=== PATIENT | male | born 1955 | race African-American/Black ===

== ENCOUNTER 2024-08-14 15:36 | Outpatient (REF) | payer OTHER, SELFPAY ==
[2024-08-14 17:33] LABS: Vitamin B12 930 pg/mL (200-900)
[2024-08-20 21:48] LABS: Treponema pallidum Ab FTA ABS Nonreactive (Nonreactive)
== END 2024-08-14 15:37 | disposition home or self-care (01) ==
LOC: HO.LAB 15:36
PROVIDERS: PCP Internal Medicine; Visit Provider Psychiatry & Neurology Neurology
DX: G31.84 Mild cognitive impairment of uncertain or unknown etiology (principal)
CPT/HCPCS: 36415; 82607; 86780

== ENCOUNTER 2025-08-18 10:57 | Outpatient (AMB) | payer OTHER, SELFPAY ==
--- NOTE | 2025-08-18 11:37 | A.OFFVIS_ITS ---
Intake Visit Reasons: 6m Vascular dementia Allergies No Known Allergies Allergy (Verified 05/21/25 07:58) HPI Comments Details: 69 yo LH man with h/o poly drug abuse but not in recent years, major depression and kidney disease was here for vascular dementia. He is a 69 year old individual presenting for follow-up regarding fatigue and memory concerns. The patient reports feeling tired a lot, struggling to get up, and a lack of motivation for usual activities. The patient is taking an unspecified medication for memory, one pill a day, and feels that it is helping. The patient has a past diagnosis of ADHD and previously took medication for it but is no longer on it. The patient has a medical history significant for hypertension, kidney disease, and an unspecified heart issue. The patient previously tried sertraline but did not like the way it made the patient feel. [facility] Medical History (Updated 08/18/25 @ 11:39 by Lilly Danielle MD) Vascular dementia MCI (mild cognitive impairment) Encephalopathy Review of Systems Narrative - Constitutional: Reports fatigue. - Musculoskeletal: Reports difficulty getting up. - Psychiatric: Reports lack of motivation; denies feeling depressed. Physical Exam Neuro Other: Mental Status: Alert and oriented to person, place, and time. Normal attention. Normal spontaneous speech, fluency, and comprehension. Cranial Nerves: CN II: Visual cook full to confrontation, visual acuity intact. CN III, IV, : Pupils equal, round, reactive to light and accommodation. Extraocular movements are normal. CN V: Facial sensation is normal. CN VII: Facial movements symmetrical. CN VIII: Hearing intact to bedside conversation is normal. CN IX, X: Palate elevates symmetrically. CN XI: Shoulder shrug and head turn symmetrical. CN XII: Tongue midline without atrophy or fasciculations. Extrapyramidal: Full facial expressions and blinking. No rigidity. Movements are appropriate with no tremor or abnormality. Speech: Normal; no dysarthria or tremor. Assessment & Plan Assessment & Plan (1) Vascular dementia: Comment: MRI brain WO at [place] in 2023: Extensive WM changes (reported). Code(s): F01.50 - Vascular dementia, unspecified severity, without behavioral disturbance, psychotic disturbance, mood disturbance, and anxiety Category: Medical Qualifiers: Dementia severity: moderate Dementia behavioral or psychological symptom: with mood disturbance Qualified Code(s): F01.B3 - Vascular dementia, moderate, with mood disturbance Plan Impression: Vascular dementia with symptoms of depression Rec: Memantine 10mg a day. He was educated about treatment of depression but he said that medicine did not help out. Nonmedicinal ways were recommended. He should continue with therapy. Medications: Refilled memantine 10 mg PO DAILY 90 tabs 1RF Coding Level of Care Code Est Pt Level 3 (46355) Diagnoses Moderate vascular dementia with mood disturbance F01.B3 Dementia severity: moderate Dementia behavioral or psychological symptom: with mood disturbance
--- OUTSIDE RECORDS SUMMARY | 2025-08-18 14:04 | XMS_ITS | Clinical Summary ---
Author Organization 175 [facility] Address [address] [place] [address] Phone Care Team Providers Care Associate Program Manager Name Role Phone Sidra Mcfadden MD Primary Care Provider [phone] Allergies Active Allergy Reactions Criticality Noted Date Comments Citric Acid 10/28/2016 If too much fruit is eaten- hasn't happened in years. hives Medications omeprazole 20 mg tablet,disintegr at, delay rel Take 1 tablet by mouth 1 (one) time each day. Active cholecalciferol (VITAMIN D-3) 25 mcg (1,000 unit) capsule Take 1 capsule (1,000 Units total) by mouth 1 (one) time each day. Active memantine (NAMENDA) 5 mg tablet Take 1 tablet (5 mg total) by mouth 2 (two) times a day. Active cyanocobalamin (VITAMIN B-12) 1,000 mcg tablet Take 1 tablet (1,000 mcg total) by mouth 1 (one) time each day. 90 tablet 1 04/21/2025 Active Jardiance 10 mg tablet Take 1 tablet (10 mg total) by mouth 1 (one) time each day. with food 90 tablet 1 04/21/2025 Active metoprolol succinate (TOPROL-XL) 50 mg 24 hr tablet Take 1 tablet (50 mg total) by mouth 1 (one) time each day. 90 each 3 04/21/2025 04/21/20 26 Active atorvastatin (LIPITOR) 20 mg tablet Take 1 tablet (20 mg total) by mouth 1 (one) time each day. 90 tablet 2 04/23/2025 Active aspirin 81 mg chewable tablet Chew 1 tablet (81 mg total) 1 (one) time each day. 90 tablet 05/05/2025 Active tamsulosin (FLOMAX) 0.4 mg 24 hr capsuleIndicatio ns:Benign prostatic hyperplasia with lower urinary tract symptoms Take 1 capsule (0.4 mg total) by mouth 1 (one) time each day. 90 capsule 1 06/18/2025 Active amLODIPine (NORVASC) 10 mg tabletIndication s:Hypertension, essential Take 1 tablet (10 mg total) by mouth 1 (one) time each day. 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 The patient was advised to seek emergent medical attention by calling 911 if they were to develop severe dyspnea, chest pain that did not resolve with rest, or if they were to faint. Sleep apnea 10/01/2024 Overview (10/01/2024): Mixed obstructive and central sleep apnea noted on sleep study completed 02/29/2024. Patient declined treatment; he does not feel it was an accurate study. Assessment & Plan (10/01/2024 12:26 PM EST): New diagnosis of mixed sleep apnea as of 02/2024; he subsequently declined any treatment. We discussed the long-term implications of untreated sleep apnea as it relates to his cardiovascular health and he verbalizes understanding of this; I have asked him to consider a referral to sleep medicine for further evaluation and treatment which he agrees to do. He will call our office if he wishes to have this referral placed. History of substance abuse ([facility] V24, [facility] V28) 10/01/2024 Assessment & Plan (10/01/2024 12:26 PM EST): Pure hypercholesterolemia 12/11/2023 Overview (06/20/2024): Last Assessment & Plan: The patient's most recent lipid panel was completed on 12/04/2023 revealing an LDL of 111; the patient has a 10-year ASCVD score of 15.4%. We discussed his increased risk for cardiac event within the next 10 years such as an SD or stroke. He does not have a history of diabetes nor CAD. He is willing to start low-dose atorvastatin; prescription sent and we will recheck lipid panel in 2 months and readdress as needed. Assessment & Plan (10/01/2024 12:26 PM EST): The patient's most recent lipid panel was completed 07/01/2024 revealing an LDL of 60 which is at goal; continue atorvastatin. Orthostatic hypotension 08/26/2023 Assessment & Plan (10/01/2024 12:26 PM EST): As above. Prolonged Q-T interval on ECG 08/26/2023 Overview (06/20/2024): Last Assessment & Plan: The patient was noted to have a newly and very mildly prolonged QT on ECG today. He has been on Wellbutrin for approximately 1-1/2 years per his report but was recently started on atomoxetine about 4 to 5 months ago. Both of these medications have the ability to prolong QT interval, and the patient was educated regarding this. He was given a copy of his ECG today to provide to his psychiatric med prescriber to readdress this further. The patient is aware of the need for frequent ECG monitoring related to this and the potential for related ventricular arrhythmia as result of this. Snoring 08/26/2023 Overview (06/20/2024): Last Assessment & Plan: Awaiting sleep study. Dizziness 08/25/2023 Overview (06/20/2024): Last Assessment & Plan: Improved with reduction in amlodipine; patient is unable to recall the last time he felt dizzy. Assessment & Plan (10/01/2024 12:26 PM EST): Improved from previous since decreasing his amlodipine dosing; however, episodes likely marketing development representative of orthostatic hypotension persist but much less frequently. They are not intrusive and he has not had any episodes of syncope or presyncope nor has he had any falls. He is aware to notify our office for any new or worsening symptoms at which time we will readdress this. Palpitations 08/25/2023 Overview (06/20/2024): Last Assessment & Plan: These have been quite rare with only 2 episodes since he was last seen; it is unclear if ambulatory monitoring would be beneficial at this time and pt states he will return to care if symptoms worsen or become more frequent. If he is found to have sleep apnea, this may be a further indication for longer term ambulatory monitoring to rule out underlying ectopy or arrhythmia. Shortness of breath 08/25/2023 Assessment & Plan (10/01/2024 12:26 PM EST): The patient's shortness of breath may be multifactorial related to his underlying heart failure with mildly reduced ejection fraction but also to deconditioning. Recent PFTs were normal. While awaiting his next echocardiogram, I have asked him to increase his activity level as tolerated; should his shortness of breath worsen or he develops any other accompanying symptoms, he will notify our office or seek emergent medical attention as appropriate. Angina of effort (CMS/HCC V24) 10/04/2022 Non-ischemic cardiomyopathy (CMS/HCC V24, CMS/[facility] C V28) 10/04/2022 Overview (06/20/2024): Cardiac cath negative for obstructive disease; cardiac MRI with EF of 43%, with left-sided hypokinesis 01/2023. Per cardiology, med management Last Assessment & Plan: The patient continues to report shortness of breath with exertion; however, this appears somewhat improved from previous and he is having a good response to albuterol inhaler that was prescribed by urgent care. He does have a history of asthma as a child; as such pulmonary function testing has been ordered for further evaluation of underlying pulmonary disease as causative for shortness of breath with exertion. Otherwise, he offers no symptoms concerning for acute heart failure and appears euvolemic on exam. The patient has been maintained on carvedilol for goal-directed medical therapy; at our last visit he was experiencing orthostatic hypotension and we are unable to add further medical therapies such as ACEI/ARB/ARNI or MRA as he was concerned this would further aggravate his lightheadedness/dizziness. He also has a history of stable CKD 3A and is followed by nephrology, Dr. King. He is no longer experiencing lightheadedness/dizziness on decreased dose of amlodipine and we did discuss stopping this medication and replacing it with another antihypertensive that would be more in line with goal-directed medical therapies for heart failure; we also discussed starting an SGLT2 inhibitor (as well as potential side effects and mechanism of action) in line with goal-directed medical therapies for heart failure. The patient does not want to start any more new medications at this time; he prefers to update and echocardiogram for reevaluation of his cardiac function to see if this is necessary as it has been approximately 1 year since last evaluation. I have entered orders for this and we will readdress medication management once results of this have been reviewed. Assessment & Plan (10/01/2024 12:26 PM EST): The patient has a history of heart failure with mildly reduced ejection fraction noted on echocardiogram from 2021 and most recently on echocardiogram completed 02/06/2024; there were trabeculations noted on both echocardiograms raising suspicion for noncompaction cardiomyopathy. Subsequent cardiac MRI in January 2023 reported that these did not meet criteria for noncompaction cardiomyopathy. MRI did not reveal any suspicion for infiltrative cardiomyopathy. He had clean coronaries on cardiac catheterization completed October 2022. The cause for his cardiomyopathy remains a bit unclear but may have origins in his history of substance abuse; he does have a significant history of of daily cocaine abuse as well as alcohol abuse, he having stopped both over 27 years ago. He also has untreated sleep apnea, which may be contributory. Fortunately, he appears euvolemic on exam today; he offers ongoing shortness of breath with exertion but feels that this has improved with increased activity level, which is encouraging. In line with guideline directed medical therapies, he has been maintained on carvedilol and Jardiance; due to his history of orthostatic hypotension as well as CKD (followed by nephrology) we have been unable to add an ACEI/ARB/Entresto or MRA. We discussed this at length today, including a potential trial of low-dose lisinopril should his advisor to command in combat feel this is appropriate. However, the patient has no interest in changing or adding any more medications at this time; he states he is already on too many and is actually looking to get rid of what ever he can. We discussed the long-term implications of his cardiomyopathy as well as worrisome signs or symptoms for which he should return to care or seek emergent medical attention; he verbalizes understanding of this. I will discuss this further with Dr. Neal and relay any further recommendations to the patient, which she is appreciative of. We will update a metabolic panel with his next set of labs and plan to repeat an echocardiogram 1 year after his most recent study completed in 01/2024, with follow-up after; he will notify our office for any new or worsening symptoms. The patient was advised to seek emergent medical attention by calling 911 if they were to develop severe dyspnea, chest pain that did not resolve with rest or nitroglycerin, or if they were to faint. Abnormal echocardiogram 07/13/2022 Overview (06/20/2024): EF ~45%, mild valvular disease. Found on echo 06/2022, done due to abnormal ecg, no symptoms. Aortic root dilation (CMS/HCC V24) 07/13/2022 Overview (06/20/2024): Echo 06/2022 4.3 cm Last Assessment & Plan: Updated echo ordered; we will continue to reevaluate this. Assessment & Plan (10/01/2024 12:26 PM EST): Stable on previous echocardiograms; we will reevaluate this on repeat echocardiogram planned as above. Blood pressure is adequately controlled today. BPH associated with nocturia 09/10/2019 ADHD (attention deficit hyperactivity disorder) 01/01/2014 Renal cyst, acquired 11/24/2011 Fatty liver 10/25/2011 Overview (06/20/2024): Sono 10/06 CKD (chronic kidney disease) stage 3, GFR 30-59 ml/min (CMS/HCC V24, CMS/HCC V28) 12/13/2010 Depressive disorder 11/13/2009 Heartburn 07/24/2006 Overview (06/20/2024): Hiatal hernia Hypertension 07/24/2006 Overview (06/20/2024): history, improved after weight loss and all meds DC by Last Assessment & Plan: Blood pressure is adequately controlled today; continue metoprolol and amlodipine. Assessment & Plan (10/01/2024 12:26 PM EST): Blood pressure is well-controlled on current antihypertensive regimen including amlodipine and metoprolol; he will continue to follow with nephrology as recommended. We will update a metabolic panel as above. Resolved Problems Problem Noted Date Diagnosed Date Resolved Date Prediabetes 07/17/2013 01/17/2025 Encounters Date Type Department Care Team Description 07/16/2025 11:00 AM EDT Office Visit Internal Medicine - [facility] [address] [place] [address] Jay Laird NP Stage 3a chronic kidney disease (CMS/HCC V24, CMS/HCC V28) (Primary Dx); Hypertension, unspecified type; Aortic root dilation ([facility] V24) 07/06/2025 Results Follow-Up [facility] [address] [place] [phone] Aubree Bill NP 07/03/2025 1:30 PM EDT Ancillary Procedure [facility] [address] [place] [address] Non-ischemic cardiomyopathy ([facility] V24, [facility] V28); Aortic root dilation ([facility] V24); Chronic heart failure with mildly reduced ejection fraction (HFmrEF, 41-49%) ([facility] V24, [facility] V28) 06/24/2025 Results Follow-Up Internal Medicine - [address] [phone] Jay Laird NP 06/18/2025 11:30 AM EDT Office Visit Internal Medicine - [address] [phone] Jay Laird NP BPH associated with nocturia (Primary Dx); Benign prostatic hyperplasia with lower urinary tract symptoms; Hypertension, essential; Tiredness 06/11/2025 Telephone Internal Medicine [address] [phone] Ariadna Shields RN from Last 3 Months Immunizations Immunization Administration Dates Next Due Td Tetanus diptheria (Tdvax) 7yo and older 11/23 Tdap Tetanus diptheria acell ular pertussis (Boostrix; Adacel) 7yo and older 09/04/2007 Surgical History Surgery Date Site/Laterality Comments CARDIOVASCULAR STRESS TEST 07/01 PROCEDURE: AR CV STRS TST XERS&/OR RX CONT ECG W/O I&R; COMMENT: negative OTHER SURGICAL HISTORY 12/30 PROCEDURE: CHG ASSAY OF PROSTATE SPECIFIC ANTIGEN FREE; COMMENT: 0.3 OTHER SURGICAL HISTORY 07/31 PROCEDURE: AR ARTHROTOMY KNEE W/SYNOVIAL BIOPSY ONLY; COMMENT: Sanchez; right, meniscectomy ESOPHAGOGASTRODUODENOSCOPY 02/15/12 PROCEDURE: AR ESOPHAGOGASTRODUODENOSCOPY TRANSORAL DIAGNOSTIC; COMMENT: hiatus hernia COLONOSCOPY 01/22/08 PROCEDURE: HISTORICAL COLONOSCOPY; COMMENT: hemorrhoids; repeat in ten years Medical History Medical History Date Comments Heartburn DX:Heartburn Essential hypertension, benign 07/24/2006 D X:Essential hypertension, benign; COMMENT: told to stop BP med two years ago CKD (chronic kidney disease) stage 3, GFR 30-59 ml/min ([facility] V24, [facility] V28) 12/13/2010 DX:CKD (chronic kidney disea se) stage 3, GFR 30-59 ml/min (HCC) Aortic root dilation (CMS/[facility] V24) 07/13/2022 DX:Aortic root dilation (HCC); COMMENT: Echo 06/2022 4.3 cm Abnormal echocardiogram 07/13/2022 DX:Abnor mal echocardiogram; COMMENT: EF -45%, mild valvular disease. Found on echo 06/2022, done due to abnormal ecg, no symptoms. Non-ischemic cardiomyopathy (CMS/[facility] V24, CMS/[facility] V28) 10/04/2022 DX:Non-ischemic cardiomyopat hy (HCC) Type 2 diabetes mellitus (CM S/HCC V24, CMS/HCC V28) 07/17/2013 DX:Type 2 diabetes mellitus (HCC) Family History Relation Name Status Comments Father not in contact Mother complications o f AIDS Social History Tobacco Use Types Packs/Day Years Used Date Smoking Tobacco: Former Cigarettes 1 26 0 09/25/1971 - 09/25/1997 Smokeless Tobacco: Never Tobacco Cessation:Counseling Given: No Alcohol Use Standard Drinks/Week Comments No 0 (1 standard drink = 0.6 oz pur e alcohol) Housing Instability Answer Date Recorde d Are you worried that in the next 2 months you may not have stable housing? No 01/15/2025 Food Access & Nutrition Answer Date Rec orded Do you have access to a vari ety of food including fruits and vegetables? Yes 01/15/2025 Access to Healthcare Answer Date Record ed Within the last 3 months, ho w many times did you visit the emergency department for your medical care? 0 01/15/2025 Health Literacy Answer Date Recorded How often do you need to hav e someone help you when you read instructions, pamphlets, or other written material from your doctor or pharmacy? Rarely 01/15/2025 Caregiver: How often do you need to have someone help you when you read instructions, pamphlets, or other written material from your doctor or pharmacy? Not on file 01/15/2025 Financial Risk Answer Date Recorded How hard is it for you to pa y for the very basics like food, housing, medical care, and air conditioning / heating? Patient declined 01/15/2025 Transportation Answer Date Recorded Has the lack of transportati on kept you from meetings, work, or from getting things needed for daily living? No Has the lack of transportati on kept you from medical appointments or from getting medications? No 01/15/2025 Social Isolation Answer Date Recorded How often do you feel lonely or isolated from th ose around you? Never 01/15/2025 Food Risk Answer Date Recorded Within the past 12 months we worried whether our food would run out before we got money to buy more. Never true 01/15/2025 Within the past 12 months th e food we bought just didn't last and we didn't have money to get more. Never true 01/15/2025 Dependent Care Answer Date Recorded Do you need help finding or paying for care for your loved ones. For example, child care cook or elderly care for an older adult? No 01/15/2025 Education Answer Date Recorded Do you think completing more education or training, like finishing a GED, going to college, or learning a trade, would be helpful for you? N/A 01/15/2025 Employment and Income Answer Date Recor ded During the last four weeks, have you been actively looking for work? Patient declined 01/15/2025 Living Situation Answer Date Recorded What is your living situation? Unrecognized valu e 01/15/2025 Sex and Gender Information Value Date Recorded Sex Assigned at Male 11/21/2024 8:29 AM EST Legal Sex Male 6:25 PM EST Gender Identity Male 11/21/2024 8:29 AM EST Sexual Orientation Straight 11/21/2024 8: 29 AM EST Obstetrics History Last Filed Vital Signs Vital Sign Reading Time Taken Comments Blood Pressure 133/85 07/16/2025 10:52 AM EDT auto recheck avg Pulse 54 07/16/2025 10:52 AM EDT Temperature - - Respiratory Rate - - Oxygen Saturation 98% 10/01/2024 9:06 AM EST Inhaled Oxygen Concentration - - Weight 88.9 kg (196 lb) 07/16/2025 10:4 8 AM EDT Height 167.6 cm (5' 6 ) 07/16/2025 10:4 8 AM EDT Body Mass Index 31.64 07/16/2025 10:48 AM EDT Plan of Treatment Upcoming Encounters Date Type Department Care Team (Late st Contact Info) Description 08/28/2025 11:20 AM EST Consult Endocrinology - [place] [address] [place] [phone] Stacie Andersen MD [address] [place] [phone] 09/02/2025 1:00 PM EST Office Visit Nephrology - [address] [phone] Carmelo King MD [address] [facility] [address] [place] [address] 11/18/2025 11:00 AM EST Office Visit Internal Medicine - [address] [phone] Jay Laird NP [address] [place] [address] Health Maintenance Due Date Last Done Comments Diabetes: Annual Foot Exam 1966 Diabetes: Annual Retina Eye Exam 1966 Hepatitis A Vaccines (1 of 2 - Risk 2-dose series) 1975 Pneumococcal Vaccine: 50+ Years (1 of 2 - PCV) 1975 RSV Immunization Adult Patients (1 - Risk 50-74 years 1-dose series) 2006 Zoster Vaccines (2 of 2) 04/17/2024 02/21/2024 COVID-19 Vaccine ( season) 2025 01/13/2022, 09/01/2021, 11/30/2020, Additional history exists Influenza Vaccine (#1) 2025 Diabetes: Blood Sugar Control Test (HGBA1C) 12/18/2025 06/20/2025, 01/17/2025, 07/01/2024, Additional history exists Social Influencers of Health Screening 01/15/2026 01/15/2025 Falls Risk Assessment 01/17/2026 01/17/2025 Diabetes: Annual Urine Albumin-Creatinine Ratio (uACR) 06/20/2026 06/20/2025, 01/17/2025, 12/04/2023 Diabetes: Annual GFR (Glomerular Filtration Rate) 06/20/2026 06/20/2025, 01/17/2025, 10/04/2024, Additional history exists Hypertension/CHF/CAD Annual BMP Blood Test 06/20/2026 06/20/2025, 01/17/2025, 10/04/2024, Additional history exists Colorectal Cancer Screening: Colonoscopy 12/07/2026 12/07/2016 Cholesterol Screening (Lipid Panel) 06/20/2030 06/20/2025, 01/17/2025, 07/01/2024, Additional history exists DTaP,Tdap,and Td Vaccines (4 - Td or Tdap) 11/23/2032 11/23/2022, 04/15/2010, 09/04/2007 Hepatitis C Screening Completed 05/13/2020, Abdominal Aortic Aneurysm (AAA) Screen Completed 02/18/2023 Depression Screening Completed 01/15/2025 HIB Vaccines Aged Out No longer eligi ble based on patient's age to complete this topic HPV Vaccines Aged Out No longer eligi ble based on patient's age to complete this topic Hepatitis B Vaccines Aged Out No long er eligible based on patient's age to complete this topic IPV Vaccines Aged Out No longer eligi ble based on patient's age to complete this topic MMR Vaccines Aged Out No longer eligi ble based on patient's age to complete this topic Meningococcal ACWY Vaccine Aged Out N o longer eligible based on patient's age to complete this topic Meningococcal B Vaccine Aged Out No l onger eligible based on patient's age to complete this topic RSV Immunization Patients Under 20 months Aged Out No longer eligible based on patient's age to complete this topic Varicella Vaccines Aged Out No longer eligible based on patient's age to complete this topic Procedures Procedure Name Priority Date/Time Associated Diagnosis Comments TRANSTHORACIC ECHOCARDIOGRAM (TTE) COMPLETE W/ CONTRAST Routine 07/03/2025 2:19 PM EDT Non-ischemic cardiomyopathy (CMS/HCC V24, CMS/HCC V28) Aortic root dilation (CMS/HCC V24) Chronic heart failure with mildly reduced ejection fraction (HFmrEF, 41-49%) (CMS/HCC V24, CMS/HCC V28) TRIIODOTHYRONINE FREE Routine 06/20/2025 8:57 AM EDT Neuropathy FREE THYROXINE WITH REFLEX TO FREE TRIIODOTHYRONINE Routine 06/20/2025 8:57 AM EDT Neuropathy HEMOGLOBIN A1C Routine 06/20/2025 8:57 AM EDT Neuropathy COMPREHENSIVE METABOLIC PANEL Routine 06/20/2025 8:57 AM EDT Neuropathy VITAMIN B12 Routine 06/20/2025 8:57 AM EDT Neuropathy THYROID STIMULATING HORMONE WITH REFLEX TO FREE T4 AND FREE T3 Routine 06/20/2025 8:57 AM EDT Neuropathy BORRELIA BURGDORFERI ANTIBODY Routine 06/20/2025 8:57 AM EDT Neuropathy MICROALBUMIN CREATININE URINE RATIO Routine 06/20/2025 8:57 AM EDT Type 2 diabetes mellitus with other specified complication, without long-term current use of insulin (CMS/HCC V24, CMS/HCC V28) LIPID PANEL WITH REFLEX TO DIRECT LDL Routine 06/20/2025 8:57 AM EDT Hypertension, unspecified type ABDOMINAL AORTIC ANEURYSM SCRREN Routine 02/18/2023 HEPATITIS C SCREENING Routine 05/13/2020 COLONOSCOPY Routine 12/07/2016 from Last 3 Months or Most Recently Relevant to Health Maintenance Results * (ABNORMAL) TRANSTHORACIC ECHOCARDIOGRAM (TTE) COMPLETE W/ CONTRAST (07/03/2025 2:19 PM EDT) LV EDV (A2C) 118 mL CV PACS LV EDV (A4C) 144 mL CV PACS LV Diastolic Volume (BP) 130 62 - 150 mL CV PACS LV ESV (A2C) 51 mL CV PACS LV ESV (A4C) 69 mL CV PACS LV Systolic Volume (BP) 59 21 - 61 mL CV PACS IVSD 1.2(A) 0.6 - 1.0 cm CV PACS LVIDD 4.8 4.2 - 5.8 cm CV PACS LVIDS 3.7 2.5 - 4.0 cm CV PACS LVOT Diameter 2.3 cm CV PACS LVOT Mean Christiano 0.5 m/s CV PACS LVOT Mean Grad 1 mmHg CV PACS LVOT Mean Grad 1 mmHg CV PACS LVOT Peak VTI 15.7 cm CV PACS LVOT Peak Christiano 0.9 m/s CV PACS LVOT Peak Gradient 3 mmHg CV PACS LVPWD 1.2(A) 0.6 - 1.0 cm CV PACS MV E' Tissue Velocity Lateral 6 cm/s CV PACS MV E' Tissue Velocity Septal 5 cm/s CV PACS Ejection Fraction (A2C) 57 % CV PACS Ejection Fraction (A4C) 52 % CV PACS Ejection Fraction (BP) 54 % CV PACS LVOT Area 4.2 cm2 CV PACS LVOT Stroke Volume 65 mL CV PACS Left Atrium Minor Ramona 5.9 cm CV PACS Left Atrium Major Ramona 5.7 cm CV PACS LA Area Sys (A2C) 22 cm2 CV PACS LA Area Sys (A4C) 19 cm2 CV PACS LA Volume (BP) 58 mL CV PACS RA Area 14.0 cm2 CV PACS RA 2D Volume 36 mL CV PACS AV Mean Gradient 3 mmHg CV PACS AV Mean Gradient 3 mmHg CV PACS Ao VTI 24.1 cm CV PACS AV Peak Christiano 1.2 m/s CV PACS AV Peak Gradient 6 mmHg CV PACS AV Area Continuity Equation 2.7 cm2 CV PACS AV Area Peak Velocity 3.1 cm2 CV PACS Aortic Arch 3.3 cm CV PACS Ascending Aorta 4.2 cm CV PACS Aortic Sinus Valsalva 4.5 cm CV PACS MV Deceleration Cherry 2.0 m/s2 CV PACS E Wave Deceleration Time 252(A) 119 - 242 ms CV PACS MV PHT 74 ms CV PACS MV Peak A Christiano 0.77 m/s CV PACS MV Peak E Christiano 0.53 m/s CV PACS MV Mean Gradient 1 mmHg CV PACS MV Mean Gradient 1 mmHg CV PACS MV Mean Gradient 1 mmHg CV PACS MV Mean Gradient 1 mmHg CV PACS MV VTI 26.7 cm CV PACS Mitral Valve Max Velocity 0.8 m/s CV PACS MV Peak Gradient 3 mmHg CV PACS MV Area PHT 3.0 cm2 CV PACS MV Area Continuity Equation 2.4 cm2 CV PACS PV Acceleration Time 120 ms CV PACS PV Acceleration Time 120 ms CV PACS PV Mean Gradient 1 mmHg CV PACS PV VTI 10.4 cm CV PACS PV Peak Velocity 0.6 m/s CV PACS PV Peak Gradient 2 mmHg CV PACS RV Diastolic Basal Dimension 3.2 2.5 - 4.1 cm CV PACS RV S' 9 cm/s CV PACS TAPSE 22 mm CV PACS TR Peak Velocity 1.95 m/s CV PACS TR Peak Gradient 15 mmHg CV PACS LV ESV Index (A4C) 35 mL/m2 CV PACS LV EDV Index (A4C) 73 mL/m2 CV PACS E/E' Ratio Septal 11 CV PACS E/E' Ratio Averaged 10 CV PACS LVOT Stroke Index 33 mL/m2 CV PACS Relative Wall Thickness ratio 0.50 CV PACS LVOT:AV VTI Index 0.65 CV PACS FS 23 % CV PACS LV Mass 2D 219 g CV PACS Ascending Aorta Index 2.13 cm/m2 CV PACS MV VTI:LVOT VTI ratio 1.7 CV PACS LVOT flow 208 mL/s CV PACS RA 2D Volume Index 18 mL/m2 CV PACS CLARA Index (VTI) 1.37 cm2/m2 CV PACS CLARA Index (Pk Christiano) 1.57 cm2/m2 CV PACS LVIDD Index 2.44 cm/m2 CV PACS LVIDS Index 1.88 cm/m2 CV PACS AV Velocity Ratio 0.75 CV PACS E/A Ratio 0.7 CV PACS E/E' Ratio Lateral 9 CV PACS LV Systolic Volume Index (BP) 30 mL/m2 CV PACS LV Diastolic Volume Index (BP) 66 mL/m2 CV PACS LA Volume Index (BP) 29 mL/m2 CV PACS LV Mass Index 2D 111 g/m2 CV PACS LV EDV Index (A2C) 60 mL/m2 CV PACS LV ESV Index (A2C) 26 mL/m2 CV PACS BSA 2.02 m2 CV PACS Right Ventricular Peak Systolic Pressure 18 mmHg CV PACS Est. RA Pressure 3 mmHg CV PACS Anatomical Region Laterality Modality Ultrasound Narrative 07/04/2025 2:05 PM EDT Left ventricle cavity size is normal. Left ventricular systolic function is low normal with an ejection fraction of 50-55%. No regional wall motion abnormalities mild LVH. Diastolic function appears to be normal. Right ventricle cavity is normal. Right ventricular systolic function is normal. Both atria are normal. Trivial valvular abnormalities. The Sinus of Valsalva is dilated (4.5 cm). The ascending aorta is dilated (4.2 cm). The transverse aorta is dilated (3.3 cm). Last year the ejection fraction was estimated at 45 to 50%. The biplane Melton's tracing today obtained numbers in the range of 52 to 53%. Overall contraction seems the same as last year. That echo was done on February 06, 2024 Left Ventricle Left ventricle cavity size is normal. There is mild concentric hypertrophy. Systolic function is low normal with an ejection fraction of 50-55%. There are no regional LV wall motion abnormalities. There is no diastolic dysfunction. Right Ventricle Right ventricle cavity appears normal. Systolic function is normal. Left Atrium Left atrium cavity size is normal. Right Atrium Right atrium cavity is normal. IVC/SVC Inferior vena cava structure is normal. RA pressures is estimated to be 3 mmHg (IVC diameter <21 mm and decreases >50% during inspiration). Mitral Valve The leaflets are mildly thickened. There is trace regurgitation. There is no evidence of mitral valve stenosis. Tricuspid Valve Tricuspid valve structure is normal. There is no significant regurgitation. There is no evidence of tricuspid valve stenosis. The right ventricular systolic pressure is normal. Aortic Valve The aortic valve is trileaflet. The leaflets are mildly thickened. There is trace regurgitation with a centrally directed jet. There is no evidence of aortic valve stenosis. Pulmonic Valve There is no regurgitation or stenosis. Ascending Aorta The Sinus of Valsalva is (4.5 cm). The ascending aorta is(4.2 cm). The transverse aorta is (3.3 cm). Pericardium Pericardium appears normal. There is no pericardial effusion. Study Details Overall the study quality was adequate. Definity contrast was given to enhance imaging. us Tangela Blanca NP CV ECHO PROCEDURES Fi nal Result * (ABNORMAL) Thyroid stimulating hormone with reflex to free t4 and free t3 (06/20/2025 8:57 AM EDT) TSH 4.28(H) 0.40 - 4.00 mcIU/mL LAB CHEMISTRY METHOD 06/20/2025 2:45 PM EDT [facility] Blood Venous blood specimen / Unknown Venipuncture / Unknown 06/20/2025 8:57 AM EDT 06/20/2025 8:57 AM EDT us Jay Laird NP LAB BLOOD ORDERABLES Final Res ult Performing Organization Address [facility]/ZIP Co de Phone Number [facility] [address] [place] [address], [place] [phone] * Free thyroxine with reflex to free triiodothyronine (06/20/2025 8:57 AM EDT) Pathologist [facility] Free T4 1.02 0.70 - 1.80 ng/dL LAB CHEMISTRY METHOD 06/20/2025 3:13 PM EDT [facility] Blood Venous blood specimen / Unknown Venipuncture / Unknown 06/20/2025 8:57 AM EDT 06/20/2025 8:57 AM EDT us Jay Laird NP LAB BLOOD ORDERABLES Final Res ult [facility] [address] [place] [address], [place] [phone] * (ABNORMAL) Lipid panel with reflex to direct LDL (06/20/2025 8:57 AM EDT) Pathologist [facility] Cholesterol 124 0 - 200 mg/dL LAB CHEMISTRY METHOD 06/20/2025 2:08 PM EDT [facility] Triglycerides 83 0 - 150 mg/dL LAB CHEMISTRY METHOD 06/20/2025 2:08 PM EDT [facility] HDL 39(L) >=40 mg/dL LAB CHEMISTRY METHOD 06/20/2025 2:08 PM EDT [facility] LDL Calculated 68 0 - 100 mg/dL LAB CHEMISTRY METHOD 06/20/2025 2:08 PM EDT [facility] Comment:Estimated LDL Calcul ated using equation: Total cholesterol - HDL cholesterol - (Triglycerides/5) VLDL Cholesterol Derek 16.6 mg/dL LAB CHEMISTRY METHOD 06/20/2025 2:08 PM EDT [facility] Non HDL Chol. (LDL+VLDL) 85 <145 mg/dL LAB CHEMISTRY METHOD 06/20/2025 2:08 PM EDT [facility] Chol/HDL Ratio 3.2 0.0 - 4.4 LAB CHEMISTRY METHOD 06/20/2025 2:08 PM EDT [facility] Blood Venous blood specimen / Unknown Venipuncture / Unknown 06/20/2025 8:57 AM EDT 06/20/2025 8:57 AM EDT Jay Laird NP LAB BLOOD ORDERABLES Final Res ult [facility] [address] [place] [address], * Borrelia burgdorferi antibody (06/20/2025 8:57 AM EDT) [facility] Lyme Ab Negative Negative LAB CHEMISTRY METHOD 06/20/2025 1:08 PM EDT [facility] Comment: No laboratory evidence of infection with B. burgdorferi (Lyme disease). Negative results may occur in patients recently infected (<=14 days) with B. burgdorferi. If recent infection is suspected, repeat testing on a new sample collected in 7- 14 days is recommended. Blood Venous blood specimen / Unknown Venipuncture / Unknown 06/20/2025 8:57 AM EDT 06/20/2025 8:57 AM EDT us Jay Laird AUTO FLEET MAINTENANCE MANAGER LAB BLOOD ORDERABLES Final Res ult Performing Organization Address [facility]/ZIP Co de Phone Number [facility] [address] [place] [address], [place] [phone] * Microalbumin creatinine urine ratio (06/20/2025 8:57 AM EDT) Creatinine, Urine 147.0 mg/dL LAB CHEMISTRY METHOD 06/20/2025 7:12 PM EDT [facility] Microalb, Ur 16.8 0.0 - 29.0 mg/L LAB CHEMISTRY METHOD 06/20/2025 7:12 PM EDT [facility] Microalb/Creat Ratio 11 <30 mg/g creat LAB CHEMISTRY METHOD 06/20/2025 7:12 PM EDT [facility] Urine Urine specimen obtained by clean catch procedure / Unknown Non-blood Collection / Unknown 06/20/2025 8:57 AM EDT 06/20/2025 8:57 AM EDT us Jay Laird AUTO FLEET MAINTENANCE MANAGER LAB URINE ORDERABLES Final Res ult Performing Organization Address [facility] Co de Phone Number [facility] [address] [place] [address], [place] [phone] * Triiodothyronine free (06/20/2025 8:57 AM EDT) T3, Free 316 230 - 420 pcg/dL LAB CHEMISTRY METHOD 06/20/2025 3:57 PM EDT [facility] Blood Venous blood specimen / Unknown Venipuncture / Unknown 06/20/2025 8:57 AM EDT 06/20/2025 8:57 AM EDT us Jay Laird AUTO FLEET MAINTENANCE MANAGER LAB BLOOD ORDERABLES Final Res ult Performing Organization Address [facility]/ZIP Co de Phone Number [facility] [address] [place] [address], [place] [phone] * (ABNORMAL) Hemoglobin A1c (06/20/2025 8:57 AM EDT) Pathologist [facility] Hemoglobin A1C 6.6(H) <6.5 % LAB CHEMISTRY METHOD 06/20/2025 1:17 PM EDT [facility] Mean Bld Glu Estim. 143 mg/dL LAB CHEMISTRY METHOD 06/20/2025 1:17 PM EDT [facility] Blood Venous blood specimen / Unknown Venipuncture / Unknown 06/20/2025 8:57 AM EDT 06/20/2025 8:57 AM EDT us Jay Laird NP LAB BLOOD ORDERABLES Final Res ult Performing Organization Address [facility]/ZIP Co de Phone Number [facility] [address] [place] [address], [place] [phone] * Vitamin B12 (06/20/2025 8:57 AM EDT) Pathologist [facility] Vitamin B-12 746 250 - 900 pcg/mL LAB CHEMISTRY METHOD 06/20/2025 2:08 PM EDT [facility] Blood Venous blood specimen / Unknown Venipuncture / Unknown 06/20/2025 8:57 AM EDT 06/20/2025 8:57 AM EDT us Jay Laird AUTO FLEET MAINTENANCE MANAGER LAB BLOOD ORDERABLES Final Res ult Performing Organization Address City/[facility]/ZIP Co de Phone Number [facility] [address] [place] [address], [place] [phone] * (ABNORMAL) Comprehensive metabolic panel (06/20/2025 8:57 AM EDT) [facility] Sodium 141 133 - 145 mmol/L LAB CHEMISTRY METHOD 06/20/2025 2:08 PM [facility] Potassium 4.2 3.5 - 5.5 mmol/L LAB CHEMISTRY METHOD 06/20/2025 2:08 PM [facility] Chloride 109 96 - 110 mmol/L LAB CHEMISTRY METHOD 06/20/2025 2:08 PM [facility] CO2 23 21 - 32 mmol/L LAB CHEMISTRY METHOD 06/20/2025 2:08 PM [facility] Anion Gap 9 3 - 11 LAB CHEMISTRY METHOD 06/20/2025 2:08 PM [facility] Glucose 106(H) 70 - 100 mg/dL LAB CHEMISTRY METHOD 06/20/2025 2:08 PM [facility] BUN 10 5 - 25 mg/dL LAB CHEMISTRY METHOD 06/20/2025 2:08 PM [facility] Creatinine 1.36(H) 0.70 - 1.30 mg/dL LAB CHEMISTRY METHOD 06/20/2025 2:08 PM [facility] eGFR 57(L) >=60 mL/min/1. 73m2 LAB CHEMISTRY METHOD 06/20/2025 2:08 PM [facility] Comment:Calculation based on the Chronic Kidney Disease Epidemiology Collaboration (CKD-EPI) equation refit without adjustment for race. BUN/Creatinine Ratio 7.4 LAB CHEMISTRY METHOD 06/20/2025 2:08 PM [facility] Calcium 9.2 8.5 - 10.5 mg/dL LAB CHEMISTRY METHOD 06/20/2025 2:08 PM [facility] AST (SGOT) 17 10 - 42 unit/L LAB CHEMISTRY METHOD 06/20/2025 2:08 PM [facility] ALT (SGPT) 29 10 - 60 unit/L LAB CHEMISTRY METHOD 06/20/2025 2:08 PM [facility] Alkaline Phosphatase 85 42 - 121 unit/L LAB CHEMISTRY METHOD 06/20/2025 2:08 PM EDT [facility] Total Protein 7.0 6.0 - 8.0 g/dL LAB CHEMISTRY METHOD 06/20/2025 2:08 PM EDT [facility] Albumin 4.0 3.2 - 5.0 g/dL LAB CHEMISTRY METHOD 06/20/2025 2:08 PM EDT [facility] Total Bilirubin 0.4 0.0 - 1.4 mg/dL LAB CHEMISTRY METHOD 06/20/2025 2:08 PM EDT [facility] Blood Venous blood specimen / Unknown Venipuncture / Unknown 06/20/2025 8:57 AM EDT 06/20/2025 8:57 AM EDT Jay Laird NP LAB BLOOD ORDERABLES Final Res ult [facility] [address] [place] [address], * Abdominal Aortic Aneurysm Screen (02/18/2023) Pathologist [facility] Abdominal Aortic Aneurysm (AAA) Screening abstracted Anatomical Region Laterality Modality Other Historical Provider HEALTH MAINTENANCE Final Result * Hepatitis C Screening (05/13/2020) Pathologist [facility] Hepatitis C Screening abstracted Historical Provider HEALTH MAINTENANCE Final Result * Colonoscopy (12/07/2016) Pathologist [facility] Colonoscopy abstracted; no interpretation Anatomical Region Laterality Modality Other Historical Provider HEALTH MAINTENANCE Final Result from Last 3 Months or Most Recently Relevant to Health Maintenance [facility] Associate Program Manager Relationship Specialty Start Date End Date Sidra Mcfadden MD [address] [place] [phone] PCP - General Internal Medicine 05/14/25
--- OUTSIDE RECORDS SUMMARY | 2025-08-18 14:04 | XMS_ITS ---
[facility] Care Team Organization Name Specialty Phone Email Start Date End Da te [facility] Jay Laird Primary Care 08/02/202205/13
--- OUTSIDE RECORDS SUMMARY | 2025-08-18 14:04 | XMS_ITS | Encounter Summary ---
Author Organization [facility] Address [address] [place] [address] Care Team Providers Care Orientor Name Role Phone Sidra Mcfadden MD Primary Care Provider [phone] Encounter Details Date Type Department Care Team (Late st Contact Info) Description 07/06/2025 Results Follow-Up [facility] [address] [facility] [address] [place] [address] Aubree Bill NP [address] [place] [address] [address] [place] [address] Social History Tobacco Use Types Packs/Day Years Used Date Smoking Tobacco: Former Cigarettes 1 26 0 09/25/1971 - 09/25/1997 Smokeless Tobacco: Never Alcohol Use Standard Drinks/Week Comments No 0 [...] for your loved ones. For example, child development professor or elderly care for an older adult? [...] Orientation Straight 11/21/2024 8: 29 AM EST documented as of this encounter Plan of Treatment Upcoming Encounters Date Type Department Care Team (Late st Contact Info) Description 08/28/2025 11:20 AM EST Consult Endocrinology - [address] [phone] Stacie Andersen MD [address] [place] [id number] 09/02/2025 1:00 PM EST Office Visit Nephrology - [address] [phone] Carmelo King MD [address] [facility] [address] [place] [address] 11/18/2025 11:00 AM EST Office Visit Internal Medicine - [address] [phone] Jay Laird NP [address] [place] [address] documented as of this encounter Visit Diagnoses Not on filedocumented in this encounter Additional Health Concerns Assessment Noted Time PHQ-9 Depression Total Score: 1 01/16/20 5:49 PM EDT documented as of this encounter Care Teams Orientor Relationship Specialty Start Date End Date Sidra Mcfadden MD [address] [place] [address] PCP - General Internal Medicine 05/14/25 documented as of this encounter
== END 2025-08-18 11:47 | disposition home or self-care (01) ==
LOC: HO.HSM 10:58
PROVIDERS: PCP Internal Medicine; Visit Provider Psychiatry & Neurology Neurology
DX: F01.B3 Vascular dementia, moderate, with mood disturbance (principal)
CPT/HCPCS: 99213